=== PATIENT | female | born 1960 | race Caucasian/White ===

== ENCOUNTER 2019-02-21 19:10 | Emergency (ER) | payer OTHER ==
[~2019-02-21] VITALS: Ht 162.6 cm; Wt 71.7 kg
[~2019-02-21 19:10] MED LIST: ADULT LOW DOSE81 MG PO; ADVAIR 250-501 EACH IH; ALBUTEROL PO; ALBUTEROL2.5 MG/3 M IH; ALPRAZOLAM OR; ASPIR 8181 MG PO; AUGMENTIN 875875 M1 PO; AZITHROMYCIN 2250 MG PO; BACTRIM 400-801 EACH; CELEXA40 MG PO; CLEOCIN HCL150 MG PO; CONSTULOSE10 GM/152 PO; DOXYCYCLIN25 MG/5 ML PO; DOXYCYCLINE 10100 M1 PO; DOXYCYCLINE 10100 MG PO; DOXYCYCLINE HY100 M3 PO; DUONEB 2.5-0.5 M3 ML INH; ENOXAPARIN40 MG/0.1 SUBQ; FLOVENT; HYDROCHLOROTH12.5 MG PO; HYDROCODON-ACE1 EAC2 PO; HYDROXYZINE HCL50 MG PO; K-DUR 20 MEQ T20 MEQ PO; LEVAQUIN 500 M500 M2 PO; LIPITOR40 MG PO; LISINOPRIL; LISINOPRIL20 MG PO; MEDROLDOSEPACK PO; METHADONE HCL 110 M1 GT; METHADONE HCL40 MG PO; METHADONE HCL5 MG PO; METHADONE PO; NICOTINE TRANSD14 M1; NORVASC 5 MG TAB5 MG PO; PREDNISONE; PREDNISONE 10 M10 M1; PREDNISONE 10 M10 M1 PO; PREDNISONE 10 M10 MG PO; PREDNISONE 20 M20 M1 PO; PREDNISONE50 MG PO; PROZAC 20 MG20 M1 PO; RESTORIL30 MG PO; SINGULAIR 10 MG10 M1 PO; SPIRIVA INH; TESSALON PERLE100 MG PO; VENTOLIN HFA 1818 GM INH; VENTOLIN17 GM INH; WELLBUTRIN 100100 M1 PO; WELLBUTRIN 100100 MG PO; XANAX1 MG PO; ZOCOR40 MG PO
[2019-02-21 19:12] VITALS: BP 88/51
[2019-02-21 19:45] LABS: INFLUENZA A ANTIGEN None Detected (None Detect); INFLUENZA B ANTIGEN None Detected (None Detect)
[2019-02-21 19:49] LABS: HEMATOCRIT 34.6 % (37.0-47.0); HEMOGLOBIN 11.8 gm/dL (12.0-15.0); MCHC 34.2 g/dL (28.0-37.0); MCV 90.7 fL (80.0-100.0); MPV 9.7 fl. (7.2-11.1); NUCLEATED RBCS 0 /100WBC; PLATELET COUNT* 155 thou/uL (150-400); RBC 3.81 mil/uL (4.20-5.00); RDW-CV 11.6 % (10.5-14.5); WBC 13.6 thou/uL (4.0-11.0)
[2019-02-21 20:02] LABS: INR 1.1; PROTIME 11.1 Seconds (9.20-11.50)
[2019-02-21 20:10] LABS: ANION GAP 8 mmol/L (7-16); BUN 33 mg/dL (7-18); CALCIUM 8.5 mg/dL (8.5-10.1); CHLORIDE 96 mmol/L (98-107); CO2 29 mmol/L (21-32); CREATININE 1.6 mg/dL (0.6-1.3); GLUCOSE 122 mg/dL (70-99); POTASSIUM 3.9 mmol/L (3.5-5.1); SODIUM 133 mmol/L (136-145); TROPONIN-I LEVEL <0.06 ng/mL (<0.06)
[2019-02-21 20:11] LABS: ALBUMIN 2.9 g/dL (3.4-5.0); ALKALINE PHOSPHATASE 107 U/L (46-116); NT-PRO BRAIN NAT PEPTIDE 578 pg/mL (<300); SGOT 53 U/L (15-37); SGPT 91 U/L (30-65); TOTAL BILIRUBIN 1.1 mg/dL (<0.1-1.0); TOTAL PROTEIN 7.2 g/dL (6.4-8.2)
[2019-02-21 20:49] LABS: ABSOLUTE LYMPHOCYTES 1.6 thou/uL (0.8-5.3); ABSOLUTE MONOCYTES 0.7 thou/uL (0.0-1.2); ABSOLUTE NEUTROPHILS 11.3 thou/uL (1.6-8.1); PLATELET ESTIMATE ADEQUATE
[2019-02-21 20:56] LABS: BE -0.5 mmol/L (-2 to +3); PCO2 47.6 mmHg (35.0-45.0); pH 7.346 (7.340-7.450)
[2019-02-21 21:01] LABS: PO2 151.2 mmHg (75.0-100.0)
[2019-02-21 23:40] VITALS: BP 101/68
--- NOTE | 2019-02-22 13:09 | EKG ---
[place] [address] ELECTROCARDIOGRAM REPORT Name: NELIDA GOMEZ Room: [facility]#: [id number] Admission: 02/21/19 Attend Phys: Discharge: 02/21/19 Date of : 56 Report #: [id number] THIS REPORT FOR: //name// [facility] ED Test Date: 2019-02-21 Test Time: 19:19:51 Pat Name: NELIDA GOMEZ Department: Room: [facility] Gender: F Bill Sorter: AIXA : 1960 Requested By: Jennifer Steele Order Number: [id number] MD: Ariel Reid Measurements Intervals [place] Rate: 120 P: 35 NJ: 157 QRS: 28 QRSD: 90 T: 85 QT: 301 QTc: 426 Interpretive Statements Sinus tachycardia nonspecific st changes Borderline low voltage, extremity leads Compared to ECG 08/14/2016 14:53:16 Sinus rhythm no longer present Left ventricular hypertrophy no longer present Electronically Signed On 02-22-2019 13:08:45 CDT by Ariel Reid [email or web address] <ELECTRONICALLY SIGNED> By: Ariel Reid MD, [facility] 02/22/19 1308 1919 18 Ariel Reid MD, [facility] /EPI
== END 2019-02-21 23:40 | disposition short-term general hospital (02) ==
LOC: M.ERS 19:10 → M.TBA-ER 20:33 → M.ERS 23:40
PROVIDERS: Emergency Medicine
DX: J44.1 Chronic obstructive pulmonary disease with (acute) exacerbation (principal); F32.9 Major depressive disorder, single episode, unspecified; F41.9 Anxiety disorder, unspecified; F17.210 Nicotine dependence, cigarettes, uncomplicated; Z88.6 Allergy status to analgesic agent; Z88.8 Allergy status to other drugs, medicaments and biological substances

== ENCOUNTER 2019-03-08 13:40 | Inpatient (IN) | payer OTHER ==
[~2019-03-08] VITALS: Ht 154.9 cm; Wt 61.1 kg
[~2019-03-08 13:40] MED LIST changes: +Duoneb 2.5-0.5 Mg/3 INH
[2019-03-08 13:41] VITALS: BP 96/52
[2019-03-08] MEDS ORDERED: AZITHROMYCIN 2250 MG PO (13:47)
[2019-03-08] MEDS ORDERED: IPRAT-ALBUT 0.5-3 ML INH (13:48)
--- NOTE | 2019-03-08 13:53 | NUR ---
PT BROUGHT IN BY EMS WITH REPORTS OF SOA. PT TRANSFERRED FROM AMBULANCE COT TO ER BED BY SELF. STAFF AT BEDSIDE READY TO ASSIST IF NEED BE. PT CHANGED INTO GOWN. TELEMETRY, BP CUFF, AND PULSE OX APPLIED TO PT. CALL LIGHT WITHIN REACH.
[2019-03-08 14:14] LABS: ABSOLUTE BASOPHILS 0.1 thou/uL (0.0-0.2); ABSOLUTE EOSINOPHILS 0.1 thou/uL (0.0-0.7); ABSOLUTE MONOCYTES 0.8 thou/uL (0.0-1.2); ABSOLUTE NEUTROPHILS 8.6 thou/uL (1.6-8.1); BASOPHILS 0.5 %; EOSINOPHILS 0.8 %; HEMOGLOBIN 12.4 gm/dL (12.0-15.0); LYMPHOCYTES 17.2 %; MCH 30.3 pg (26.0-34.0); MCHC 32.7 g/dL (28.0-37.0); MCV 92.8 fL (80.0-100.0); MONOCYTES 6.8 %; MPV 8.2 fl. (7.2-11.1); NUCLEATED RBCS 0 /100WBC; PLATELET COUNT* 288 thou/uL (150-400); POLYS 74.7 %; RDW-CV 12.2 % (10.5-14.5); WBC 11.5 thou/uL (4.0-11.0)
[2019-03-08 14:32] LABS: ALBUMIN 3.1 g/dL (3.4-5.0); ALKALINE PHOSPHATASE 115 U/L (46-116); ANION GAP 5 mmol/L (7-16); BUN 20 mg/dL (7-18); CALCIUM 8.9 mg/dL (8.5-10.1); CHLORIDE 100 mmol/L (98-107); CO2 37 mmol/L (21-32); CREATININE 0.9 mg/dL (0.6-1.3); GLUCOSE 118 mg/dL (70-99); POTASSIUM 3.5 mmol/L (3.5-5.1); SGOT 18 U/L (15-37); SGPT 33 U/L (30-65); SODIUM 142 mmol/L (136-145); TOTAL BILIRUBIN 0.3 mg/dL (<0.1-1.0); TOTAL PROTEIN 7.3 g/dL (6.4-8.2); TROPONIN-I LEVEL <0.06 ng/mL (<0.06)
--- NOTE | 2019-03-08 14:32 | NUR ---
PT ASKED FOR ICE WATER. CECILIA, LEAK HUNTER OKAYED PT TO HAVE ICE WATER. ICE WATER GIVEN TO PT. PT STATED APPRECIATION. PT AWARE OF NEED FOR UA SPECIMEN, STATED UNDERSTANDING.
[2019-03-08 14:40] LABS: BE 6.3 mmol/L (-2 to +3); PO2 72.6 mmHg (75.0-100.0); pH 7.355 (7.340-7.450)
[2019-03-08 14:45] LABS: PCO2 61.7 mmHg (35.0-45.0)
--- NOTE | 2019-03-08 14:54 | NUR ---
RT AT BEDSIDE ADMINISTERING BREATHING TREATMENT AND PLACE BIPAP.
--- NOTE | 2019-03-08 15:20 | NUR ---
PT O2 SAT FLUCTUATING, NURSE WENT INTO ROOM. BIPAP MASK OFF PT, NO ONE AT BEDSIDE. NURSE ASKED PT IF PT TOOK BIPAP OFF, PT NODDED HEAD UP AND DOWN. NURSE INFORMED PT THAT BIPAP WAS HELPING PT AND PT NEEDED TO KEEP BIPAP ON. PT STATED UNDERSTANDING AND STATED "BUT I HAD TO SPIT". PT ATTEMPTED TO REATTACH BIPAP MASK AND DROPPED HEAD AND CLOSED EYES IN THE MIDDLE OF ATTEMPTING. NURSE STATED PT NAME, PT HEAD CAME BACK UP AND PT SAID "OH YES, WHAT?". NURSE REATTACHED BIPAP. CECILIA, BLUEPRINT DUPLICATOR MADE AWARE AND IN ROOM TALKING TO PT.
--- NOTE | 2019-03-08 16:42 | EKG ---
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: : 1960 Requested By: Daphney Ghosh Order Number: [id number] MD: Ariel Reid Measurements Intervals [place] Rate: 87 P: 78 ME: 141 QRS: 4 QRSD: 92 T: 44 QT: 385 QTc: 463 Interpretive Statements Sinus rhythm Probable left ventricular hypertrophy Anterior ST elevation, probably due to LVH No previous ECG available for comparison Electronically Signed On 03-08-2019 16:42:29 CDT by Ariel Reid [email or web address] <ELECTRONICALLY SIGNED> By: Ariel Reid MD, [facility] 03/08/19 1642 1404 1404 Ariel Reid MD, FAC /EPI
[2019-03-08 17:37] VITALS: BP 104/63
[2019-03-08 18:49] VITALS: BP 109/66
--- NOTE | 2019-03-08 18:50 | NUR ---
VSS, ASSUMED CARE OF PT FROM ER, PT IS IN BED WITH CALL LIGHT IN REACH AND FAMILY AT BEDSIDE, PT IS A&O4 ON 3L NC AND IS UP WITH STAND BY, WILL FOLLOW WITH PLAN OF CARE.
[2019-03-08 20:00] VITALS: BP 106/61
--- NOTE | 2019-03-08 22:04 | NUR ---
INITL ASSESSMENT COMPLETED AT 1999. PT RANG LIGHT AT THAT TIME STATING SHE COULD NOT BREATHE AND WAS IN A PANIC. PT ON O2 AT 3 LITERS, RESPIRATIONS 28-30 HEART RATE IN 80'S. RT GAVE PT DUONEB TREATMENT. PT GIVEN PRN LORAZEPAM. PT PLACED ON HOME TRILOGY UNIT PER RT. PT'S O2 SAT WAS 94% AFTER INTERVENTIONS. DR GUPTA NOTIFIED AT 2200 REGARDING EVENTS. ORDERS RECIEVED.
[2019-03-09] VITALS: BP 101/56
[2019-03-09 03:50] VITALS: BP 97/58
[2019-03-09 05:01] LABS: HEMATOCRIT 34.6 % (37.0-47.0); HEMOGLOBIN 11.5 gm/dL (12.0-15.0); MCH 30.5 pg (26.0-34.0); MCHC 33.2 g/dL (28.0-37.0); MCV 92.1 fL (80.0-100.0); MPV 8.5 fl. (7.2-11.1); NUCLEATED RBCS 0 /100WBC; PLATELET COUNT* 298 thou/uL (150-400); RBC 3.75 mil/uL (4.20-5.00); RDW-CV 12.2 % (10.5-14.5); WBC 9.7 thou/uL (4.0-11.0)
[2019-03-09 05:31] LABS: ANION GAP 2 mmol/L (7-16); BUN 18 mg/dL (7-18); CALCIUM 8.5 mg/dL (8.5-10.1); CHLORIDE 102 mmol/L (98-107); CHOLESTEROL 133 mg/dL (<200); CO2 35 mmol/L (21-32); GLUCOSE 118 mg/dL (70-99); HDL CHOLESTEROL 69 mg/dL (>40); LDL CHOLESTEROL 58 mg/dL (<100); MAGNESIUM 1.6 mg/dL (1.8-2.4); SODIUM 139 mmol/L (136-145); TC:HDL 1.9 Ratio (Not establshd); TRIGLYCERIDE 31 mg/dL (<150); VLDL 6 mg/dL (<40)
[2019-03-09 05:33] LABS: POTASSIUM 4.5 mmol/L (3.5-5.1)
[2019-03-09 06:17] LABS: SERUM ASSESSMENT Clear
[2019-03-09 06:34] LABS: ABSOLUTE LYMPHOCYTES 0.5 thou/uL (0.8-5.3); ABSOLUTE NEUTROPHILS 9.2 thou/uL (1.6-8.1); PLATELET ESTIMATE ADEQUATE
[2019-03-09 08:00] VITALS: BP 158/83
[2019-03-09 12:23] VITALS: BP 115/60
--- NOTE | 2019-03-09 12:46 | NUR ---
MET WITH PT TO DISCUSS HOME SITUATION/DC PLANNING. PT LIVES ALONE, HAS SUPPORTIVE FAMILY AND FRIEND WHO WAS IN THE ROOM. PT ADMITS TO ANXIETY ISSUES, STATED HER DTR WAS 'MURDERED' A YEAR AGO AND THE TRIAL IS COMING UP NEXT WEEK. TALKED WITH HER ABOUT SUPPORT, COUNSELING, GRIEF SUPPORT. SHE WAS AWARE OF THOSE AND HAS RESOURCES TO OBTAIN HELP IF SHE DESIRES. PT STATES SHE HAS O2 SHE WEARS AT NIGHT AND PRN, PORTABLE CONCENTRATOR, NEBULIZER, TRILOGY AND CANE. SHE HAS HAD HH IN PAST BUT NOT CURRENT. PT CHANGED INSURANCE FIRST OF THE YEAR AND HAS BEEN TRYING TO GET A NEW PCP, HAS APPT IN [place] BUT ASKED CM TO ASSIST WITH GETTING APPT. HER [employer] INSURANCE CARD STATED THAT DR SUSAN ECHAVARRIA WAS HER DESIGNATED PCP, WILL CONTACT OFFICE TO TRY TO GET SOONER APPT. ALSO GAVE DPOA INFO AND ED, PT TO CONSIDER, WILL F/U UP WITH HER IN A DAY OR SO TO DISCUSS FURTHER. WILL FOLLOW
[2019-03-09 16:18] VITALS: BP 108/60
[2019-03-09 19:10] VITALS: BP 115/68
[2019-03-10] VITALS (7 sets, daily range): BP systolic 111–145; BP diastolic 54–77
[2019-03-10 02:10] LABS: GLYCOHEMOGLOBIN (HGB A1C) 5.5 % (4.8-5.6)
--- NOTE | 2019-03-10 03:42 | NUR ---
INITIAL ASSESSMENT COMPLETED CHARTED. VSS. UPON INITAL ASSESSMENT PT HAD TAKEN OXYGEN OFF FOR AN UNKNOWN AMOUNT OF TIME. PT STATED SHE "FELT FUNNY". PT EDUCATED ON NEED FOR O2, PT PUT ON TRILOGY AT THAT TIME. LATER PT C/O ANXIETY FROM WEARING MASK. PRN ATIVAN GIVEN WITH GOOD RESULTS. TRACING SR ON MONITOR. HOURLY ROUNDING AND FALL PRECAUTIONS IN PLACE.CLWR
[2019-03-10 05:13] LABS: CALCIUM 8.2 mg/dL (8.5-10.1); CREATININE 0.8 mg/dL (0.6-1.3); POTASSIUM 4.2 mmol/L (3.5-5.1)
--- NOTE | 2019-03-10 07:20 | NUR ---
CHANGE OF SHIFT. BEDSIDE REPORT GIVEN PATIENT SEEN AT BEDSIDE, IN BED RESTING ASSUMED PATIENT CARE
--- NOTE | 2019-03-10 10:12 | NUR ---
CALL PLACED TO DR ECHAVARRIA'S OFFICE IN [place] TO TRY TO MAKE F/U APPT, NOT ABLE TO MAKE SOONER APT AND HE IS TAKING NEW PTS IN NOVEMBER. CALL TO [facility] OFFICE AT THE [facility] WHERE PT HAS APPT IN [place], WAS ABLE TO MAKE SOONER APPT FOR MARCH [address] ZAPATA. INFO IN PT'S DC INSTRUCTIONS AND WILL DISCUSS WITH HER ALSO. THEY REQUEST DC AND CLINICAL INFO FAXED TO [phone]
--- NOTE | 2019-03-10 13:09 | CON ---
[address] [address] CONSULTATION Name: NELIDA GOMEZ Room: [address] IN M.R.#: [id number] Admission: 03/08/19 Attend Phys: José Miguel Kovacs MD Discharge: Date of : 56 Report #: [id number] THIS REPORT FOR: //name// CC: Pavel Kovacs NEW PATIENT EVALUATION REASON FOR EVALUATION: She is known to have COPD. CHIEF COMPLAINT: Shortness of breath, cough for 3 weeks. HISTORY OF PRESENT ILLNESS: She is known to have COPD. She says she also has asthma when she was a child. She has worsening shortness of breath, worsening cough with a dark fonseca mucus. Over the last 3 weeks, she has been desatting at home to 60%; however, EMS reported 88%. She received treatment in the Emergency Room. She has been using her Trilogy more often most of the day. Her most recent exacerbation was around a month ago. She uses Trilogy as above. She is using DuoNeb every 4 hours. She is on home O2 at 3 liters. Has been using steroids more frequently. She still continues to smoke a few cigarettes a day. Currently receiving IV steroids, DuoNebs. PAST MEDICAL HISTORY: Chronic hypercapnic and hypoxemic respiratory failure, recurrent COPD exacerbation. PAST SURGICAL HISTORY: Cholecystectomy, tubal ligation. HOME MEDICATIONS: Reviewed. MEDICATIONS AT HOME: Include Advair, Spiriva HandiHaler, azithromycin, which she is taking daily. FAMILY HISTORY: Noncontributory. SOCIAL HISTORY: Continues to smoke unfortunately, had 36 pack-year smoking. REVIEW OF SYSTEMS: Twelve-point review of systems is otherwise as above reviewed. PHYSICAL EXAMINATION: GENERAL: The patient is anxious, not in distress. VITAL SIGNS: She is afebrile, pulse is 87, respiratory rate 16, blood pressure 115/60. Without Trilogy, she states she is able to speak full sentences without difficulty. HEAD AND NECK: Neck is supple. Oral mucosa is clear. CHEST: She [place] [address] CONSULTATION Name: NELIDA GOMEZ Room: [address] IN [facility].#: [id number] Admission: 03/08/19 Attend Phys: José Miguel Kovacs MD Discharge: Date of : 56 Report #: [id number] CARDIOVASCULAR: Regular rhythm. ABDOMEN: Soft, nontender. EXTREMITIES: No edema. PSYCHIATRIC: Alert, oriented, flat affect. LABORATORY DATABASE: Arterial blood gas, which I have reviewed, pH 7.35, pCO2 61.7, pO2 72 and this is on nasal cannula 3 liters. Chest x-ray showed no acute infiltrate. Hyperinflation. Creatinine was 1. White blood cell count 9.7. ASSESSMENT AND PLAN: Advanced chronic obstructive pulmonary disease, currently with exacerbation. The patient also has deconditioning. Will benefit from rehabilitation. At this time, we will agree with treatment with bronchodilator treatment, Solu-Medrol every 8 hours at 450 mg and DuoNeb every 4 hours for chronic obstructive pulmonary disease exacerbation. Currently, with her recurrent chronic obstructive pulmonary disease exacerbation, she is on chronic azithromycin. Would evaluate for pulmonary rehabilitation to be started after discharge within a month. Chronic obstructive pulmonary disease exacerbation. Agree with steroid treatment, bronchodilator treatment. Consider deescalating antibiotics to Levaquin. We will follow up in the morning. Today, we will discuss with nursing staff. She is using Trilogy most of the time and to switch her to use every 4 hours on, 4 hours off. Thank you for the consultation. <ELECTRONICALLY SIGNED> By: Lucia Champion MD 03/10/19 1309 1321 [id number] Champion MD /nt
[2019-03-11] VITALS: BP 120/74
--- NOTE | 2019-03-11 02:38 | NUR ---
INITAL ASSESSMENT COMPLETED CHARTED. VSS. TRACING SR ON MONITOR. PT REPORTS FEELING ANXIOUS. PRN ATIVAN GIVEN PER EMAR WITH GOOD RESULTS. PT RESTING COMFORTABLY, DENIES ANY FURTHER NEEDS AT THIS TIME. HOURLY ROUNDING AND FALL PRECAUTIONS IN PLACE. CLWR.
[2019-03-11 04:00] VITALS: BP 144/87
--- NOTE | 2019-03-11 08:00 | NUR ---
RECEIVED REPORT AND ASSUMED CARE OF PT AT 0730.PT IS A/OX4.SR ON MONITOR.ON 3 L NC.IV PATENT AND SALINE LOCKED.NO COMPLAINTS OF PAIN.NO SKIN ISSUES.CLEAR DIMINISHED LUNGS SOUNDS.NO COMPLAINTS OF PAIN.CALL LIGHT AND FALL PRECAUTIONS IN PLACE. WILL CONTINUE TO MONITOR.
[2019-03-11 08:22] VITALS: BP 146/87; BP 151/60
[2019-03-11 11:51] VITALS: BP 123/67
--- NOTE | 2019-03-11 13:05 | NUR ---
ORDERS NOTED FOR DC HOME WITH HH, HAD RECEIVED OK FROM KATHY TO FOLLOW, DR MOORE TO SIGN HH ORDERS UNTIL PT GOES TO HER PCP APPT WITH DR ZAPATA ON 03/25. CALLED AND FAXED ORDERS TO [facility]/KATHY. PT ANXIOUS TO GO HOME. DENIES NEEDS
[2019-03-11] MEDS ORDERED: LIPITOR 20 MG T20 M1 PO (13:16)
[2019-03-11] MEDS ORDERED: CYMBALTA30 MG PO (13:16)
[2019-03-11] MEDS ORDERED: PREDNISONE 20 M20 MG PO (13:18)
[2019-03-11] MEDS ORDERED: LEVAQUIN 500 M500 M3 PO (13:19)
[2019-03-11] MEDS ORDERED: PROTONIX40 M1 PO (13:26)
[2019-03-11] MEDS ORDERED: SINGULAIR 10 MG10 M1 PO (13:27)
--- NOTE | 2019-03-11 14:27 | NUR ---
PT OK TO DISCHARGE.ALL DISCHARGE PAPER COMPLETED.EDUCATION PROVIDED ON FOLLOW UP AND MEDICATIONS.IV AND HEART MONITOR TAKEN OUT.ALL PERSONAL BELONGINGS HANDED OVER TO PT.PT IS GOING HOME WITH HER PORTABLE O2 AT 3 L NC.PT WHEELED TO HER CAR BY CUSTOMER SUPPORT CONSULTANT.
--- NOTE | 2019-03-11 14:33 | NUR ---
I have reviewed the documentation by JACKIE GONZALEZ from [id number] to [id number] and I concur with it.
== END 2019-03-11 14:34 | disposition home health service (06) | DRG 189 ==
LOC: M.ERS 13:40 → M.TBA-ER 16:26 → M.2W 16:26
PROVIDERS: Nurse Practitioner Family; ADMIT Family Medicine
PROC: 5A09357 Assistance with Respiratory Ventilation, Less than 24 Consecutive Hours, Continuous Positive Airway Pressure (ICD-10-PCS; principal; 2019-03-08)
DX: J96.22 Acute and chronic respiratory failure with hypercapnia (principal); G93.41 Metabolic encephalopathy; J44.1 Chronic obstructive pulmonary disease with (acute) exacerbation; R65.10 Systemic inflammatory response syndrome (SIRS) of non-infectious origin without acute organ dysfunction; J96.21 Acute and chronic respiratory failure with hypoxia; J45.909 Unspecified asthma, uncomplicated; F17.210 Nicotine dependence, cigarettes, uncomplicated; I25.10 Atherosclerotic heart disease of native coronary artery without angina pectoris; M19.90 Unspecified osteoarthritis, unspecified site; N18.3 Chronic kidney disease, stage 3 (moderate); F41.9 Anxiety disorder, unspecified; Z79.82 Long term (current) use of aspirin; I25.2 Old myocardial infarction; Z90.49 Acquired absence of other specified parts of digestive tract; Z88.6 Allergy status to analgesic agent; Z88.1 Allergy status to other antibiotic agents; Z88.8 Allergy status to other drugs, medicaments and biological substances; Z79.899 Other long term (current) drug therapy